=== PATIENT | female | born 1955 | race Caucasian/White ===

== ENCOUNTER → 2016-07-11 | Outpatient (CLI) | payer MEDICARE, OTHER | LOC: MAMO 12:49 | DX: Z12.31 Encounter for screening mammogram for malignant neoplasm of breast (principal); Z90.710 Acquired absence of both cervix and uterus | CPT/HCPCS: G0202 ==

== ENCOUNTER → 2016-08-01 | Outpatient (CLI) | payer MEDICARE, OTHER | LOC: MAMO 09:47 | DX: R92.2 Inconclusive mammogram (principal) | CPT/HCPCS: 76641-LT; G0206 ==